=== PATIENT | female | born 1935 | race Caucasian/White ===

== ENCOUNTER 2020-02-22 23:44 | Emergency (ER) | payer OTHER, MEDICARE ==
[2020-02-22 23:54] VITALS: BP 150/78; PULSE 73; TEMP 98.3; BMI 26.6
== END 2020-02-23 01:27 | disposition home or self-care (01) ==
LOC: FER 23:44
DX: S62.102A Fracture of unspecified carpal bone, left wrist, initial encounter for closed fracture (principal)
CPT/HCPCS: 70450-TC; 73110-TC-LT-FY; 99284-25